=== PATIENT | male | born 1975 | race Caucasian/White ===

== ENCOUNTER 2023-07-31 08:07 | Outpatient (CLI) | payer BC, SELFPAY ==
--- NOTE | 2023-07-31 09:43 | W.ANESCHARGE ---
Anesthesia Charges Start Date/Time Anesthesia Start Date: 07/31/23 Anesthesia Start Time: 08:59 Stop Date/Time Anesthesia Stop Date: 07/31/23 Anesthesia Stop Time: 09:41
--- NOTE | 2023-07-31 10:35 | W.ANESCHARGE ---
Anesthesia Charges Start Date/Time Anesthesia Start Date: 07/31/23 Anesthesia Start Time: 08:59 Stop Date/Time Anesthesia Stop Date: 07/31/23 Anesthesia Stop Time: 09:41
== END 2023-07-31 08:08 | disposition home or self-care (01) ==
PROVIDERS: PCP Family Medicine; Visit Provider Surgery
DX: Z12.11 Encounter for screening for malignant neoplasm of colon (principal); K63.5 Polyp of colon; Z83.719 Family history of colon polyps, unspecified
CPT/HCPCS: 00811; 45385; 88305; J2704